=== PATIENT | female | born 1950 | race Caucasian/White ===

== ENCOUNTER → 2016-07-19 | Day surgery (SDC) | payer BC ==
[~2016-07-19] MED LIST: ASPIRIN PO; ASPIRIN81 M2 PO; CELEBREX PO; CLARITIN10 M2 PO; FLECAINIDE ACE100 MG PO; LOSARTAN-HCTZ1 EAC1 PO; NAPROXEN500 M1 PO; NEXIUM PO; VASOTEC PO
--- NOTE | ~2016-07-19 | OR ---
Unit #: [id number] #: [id number] Patient: ZIGGY BHATTI [id number] [address] [address] [id number] O MR#: [id number] NAME: ZIGGY BHATTI ROOM: Date of Procedure: 07/19/2016 Admission Date: 07/19/2016 Surgeon: Benito Hicks M.D. : 1950 Attending Physician: Benito Hicks M.D. Referring Physician: Benito Hicks M.D. Primary Care Physician: Bienvenido Enrique M.D. OPERATIVE REPORT PREOPERATIVE DIAGNOSIS Abdominal pain. POSTOPERATIVE DIAGNOSES 1. Duodenal ulcer. 2. Prepyloric ulcer. 3. Gastritis. 4. Normal colon. PROCEDURES PERFORMED 1. Esophagogastroduodenoscopy with biopsy for Helicobacter pylori. 2. Colonoscopy to ascending colon. ANESTHESIA IV sedation. COMPLICATIONS None. INDICATIONS FOR PROCEDURE The patient is a 66-year-old lady, who presents with abdominal pain. DESCRIPTION OF PROCEDURE The patient was taken to the operating theater and placed in a left lateral decubitus position. IV sedation was initiated. EGD scope was passed under direct vision into the esophagus. Esophagus was grossly normal. The GE junction was widely patent. Stomach showed mild gastritis and small prepyloric ulcer. The duodenum showed a large ulcer on both the anterior and posterior surfaces. This was nonhemorrhagic. A biopsy was taken for H pylori. The patient was repositioned. Digital rectal exam was normal. Colonoscope was then passed under direct vision and navigated to ascending colon. I could not navigate to the cecum, but I could see the distance. I saw no abnormalities. She tolerated the procedure well and sent to recovery room in good condition. PLAN We will plan for treatment with Nexium. Await H pylori biopsies. Dictated by... Unit #: [id number] #: [id number] Patient: ZIGGY BHATTI Cody RussellO/naye TD: 07/20/2016 08:01 JOB #: [id number] OPERATIVE REPORT Page 1 of 1 X Benito Hicks MD PROCEDURE OPERATIVE NOTE
== END | disposition home or self-care (01) ==
LOC: COPS 10:22
PROVIDERS: Surgery
PROC: 0DB78ZX Excision of Stomach, Pylorus, Via Natural or Artificial Opening Endoscopic, Diagnostic (ICD-10-PCS; principal; 2016-07-19 12:00)
PROC: 0DJD8ZZ Inspection of Lower Intestinal Tract, Via Natural or Artificial Opening Endoscopic (ICD-10-PCS; 2016-07-19 12:00)
DX: K26.9 Duodenal ulcer, unspecified as acute or chronic, without hemorrhage or perforation (principal); K25.9 Gastric ulcer, unspecified as acute or chronic, without hemorrhage or perforation; K29.70 Gastritis, unspecified, without bleeding; K21.9 Gastro-esophageal reflux disease without esophagitis; I10 Essential (primary) hypertension; J30.9 Allergic rhinitis, unspecified; M19.90 Unspecified osteoarthritis, unspecified site; M17.0 Bilateral primary osteoarthritis of knee; M16.11 Unilateral primary osteoarthritis, right hip; I47.1 Supraventricular tachycardia; R00.2 Palpitations; Z79.82 Long term (current) use of aspirin; Z79.899 Other long term (current) drug therapy; Z79.1 Long term (current) use of non-steroidal anti-inflammatories (NSAID); Z98.84 Bariatric surgery status; I49.3 Ventricular premature depolarization; Z98.51 Tubal ligation status
CPT/HCPCS: 87077

== ENCOUNTER → 2016-11-12 | Day surgery (SDC) | payer BC ==
--- NOTE | ~2016-11-12 | OR ---
Unit #: [id number] #: [id number] Patient: ZIGGY BHATTI [id number] [address] [address] [id number] O MR#: [id number] NAME: ZIGGY BHATTI ROOM: Date of Procedure: 11/12/2016 Admission Date: 11/12/2016 Surgeon: Benito Hicks M.D. : 1950 Attending Physician: Benito Hicks M.D. Referring Physician: Benito Hicks M.D. Primary Care Physician: Bienvenido Enrique M.D. OPERATIVE REPORT PREOPERATIVE DIAGNOSIS History of large duodenal pre-pyloric ulcer. POSTOPERATIVE DIAGNOSES 1. Healed duodenal ulcer. 2. Mild gastritis. PROCEDURE PERFORMED Esophagogastroduodenoscopy with biopsy for Helicobacter pylori. ANESTHESIA IV sedation. COMPLICATIONS None. INDICATION The patient is a 66-year-old lady, who presented with abdominal pain, 3 months prior had a very large ulcer. I was unsure whether this represented gastric versus a duodenal ulcer. Biopsies were taken. She presents for followup EGD. DESCRIPTION OF PROCEDURE The patient was taken to the operating theater and placed in the left lateral decubitus position. IV sedation was initiated. EGD scope was passed under direct vision into the esophagus. Esophagus was grossly normal with the area where the Lap-Band was placed. There was some mild gastritis, mainly at the antrum but the ulcer had healed. They take a biopsy for Helicobacter pylori. She tolerated the procedure well and sent to the recovery room in good condition. PLAN We will continue with proton pump inhibitors. Dictated by... Cody Russell/naye TD: 11/13/2016 05:02 Unit #: [id number] #: [id number] Patient: ZIGGY BHATTI JOB #: [id number] OPERATIVE REPORT Page 1 of 1 X Benito Hicks MD X PROCEDURE OPERATIVE NOTE
== END | disposition home or self-care (01) ==
LOC: COPS 11:18
DX: K29.70 Gastritis, unspecified, without bleeding (principal); Z87.19 Personal history of other diseases of the digestive system; Z98.84 Bariatric surgery status
CPT/HCPCS: 87077